=== PATIENT | female | born 1990 | race Caucasian/White ===

== ENCOUNTER 2019-01-15 17:00 | Emergency (ER) | payer SELFPAY | END 2019-01-15 17:59 | disposition home or self-care (01) | LOC: ERS 17:00 | DX: S50.11XA Contusion of right forearm, initial encounter (principal); L98.9 Disorder of the skin and subcutaneous tissue, unspecified; X58.XXXA Exposure to other specified factors, initial encounter | CPT/HCPCS: 99283 ==